=== PATIENT | male | born 2000 | race Caucasian/White ===

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

== ENCOUNTER 2021-01-23 20:56 | Emergency (ER) | payer OTHER ==
[~2021-01-23] VITALS: Ht 170.2 cm; Wt 89.8 kg
[2021-01-23] MEDS ORDERED: DICLOFENAC SODI75 MG PO (22:37)
== END 2021-01-23 23:05 | disposition home or self-care (01) ==
LOC: ED 20:56
DX: S16.1XXA Strain of muscle, fascia and tendon at neck level, initial encounter (principal); W22.8XXA Striking against or struck by other objects, initial encounter; Y93.61 Activity, american tackle football
CPT/HCPCS: 72125; 99283-25

== ENCOUNTER 2021-06-22 15:32 | Emergency (ER) | payer OTHER ==
[~2021-06-22] VITALS: Ht 170.2 cm; Wt 89.8 kg
[~2021-06-22 15:32] MED LIST changes: +DICLOFENAC SODI75 MG PO
== END 2021-06-23 13:05 | disposition short-term general hospital (02) ==
LOC: ED 15:32
DX: R45.851 Suicidal ideations (principal); Z20.822 Contact with and (suspected) exposure to COVID-19
CPT/HCPCS: 36415; 80053; 81001; 84443; 85025; 99285; C9803; G0480; U0003